=== PATIENT | female | born 1945 | race Caucasian/White ===

== ENCOUNTER 2023-05-26 18:31 | Emergency (ER) | payer MEDICARE ==
[2023-05-26 19:15] LABS: #Eosinphils 0.1 thou/uL (0.0-0.7); #Lymphocytes 0.6 thou/uL (1.20-3.40); #Monocytes 0.5 thou/uL (0.11-0.59); #Neutrophils 3.2 thou/uL (1.40-6.50); %Basophils 1.1 % (0.0-1.0); %Lymphocytes 14.1 % (21.0-51.0); %Monocytes 10.2 % (0.0-10.0); %Neutrophils 71.6 % (42.0-75.0); Hematocrit 20.6 % (36.0-47.0); Hemoglobin 6.3 g/dL (12.0-16.0); Mean Corpuscular HGB CONC 30.5 g/dL (32.0-36.0); Mean Corpuscular Hemoglobin 28.3 pg (27.0-31.0); Mean Corpuscular Volume 92.7 fl (78.0-98.0); Mean Platelet Volume 7.3 fL (7.4-10.4); Platelet Count 149 10x3/uL (130-400); RBC Distribution Width 16.4 % (11.5-14.5); Red Blood Cell (RBC) Count 2.22 mill/uL (4.20-5.40); White Blood Cell (WBC) Count 4.5 10x3/uL (4.8-10.8)
[2023-05-26 19:22] LABS: ALT (SGPT) 18 U/L (8-55); AST (SGOT) 44 U/L (5-34); Albumin 3.1 g/dL (3.4-4.8); Alkaline Phosphatase 52 U/L (40-110); Anion Gap 17 mmol/L (10-20); BUN (Urea Nitrogen) 13 mg/dL (9.8-20.1); Bilirubin, Total 0.6 mg/dL (0.2-1.2); Calc. Creatinine Clearance 0 mL/min (70-130); Calcium 8.4 mg/dL (7.8-10.44); Carbon Dioxide 18 mmol/L (23-31); Chloride 105 mmol/L (98-107); Estimated GFR 45; Globulin 3.2 g/dL (2.4-3.5); Glucose 110 mg/dL (83-110); Potassium 3.6 mmol/L (3.5-5.1); Protein, Total 6.3 g/dL (5.8-8.1); Sodium 136 mmol/L (136-145)
[2023-05-26] MEDS ORDERED: Sodium Chloride 0.9% 250 ML 250 ML ONE (20:14)
[2023-05-26 23:31] LABS: Hemoglobin 7.5 g/dL (12.0-16.0)
[2023-05-26 23:33] LABS: Hematocrit 24.5 % (36.0-47.0)
== END 2023-05-27 00:20 | disposition home or self-care (01) ==
LOC: NAV ERS 18:31
DX: D64.9 Anemia, unspecified (principal); I10 Essential (primary) hypertension
CPT/HCPCS: 36430; 80053; 85014; 85018; 85025; 86850; 86900; 86901; 86920; P9016; 99284; J7050